=== PATIENT | female | born 1955 | race Caucasian/White ===

== ENCOUNTER 2021-05-21 13:33 | Emergency (ER) | payer OTHER, MEDICAID ==
[~2021-05-21] VITALS: Ht 154.9 cm; Wt 127.0 kg
--- NOTE | 2021-05-21 13:33 | NUR ---
BROUGHT BACK TO BED #5 AND TRIAGED. REPORT GIVEN TO MATTHEW
[2021-05-21 13:55] VITALS: BP_SYST 151
--- NOTE | 2021-05-21 14:06 | NUR ---
INTRODUCTION MADE: C/C NAUSEA X 2 WEEKS WITH CONSTIPATION. PATIENT TAMAZIGHT SPEAKING ONLY, SCREW MACHINE SET UP OPERATOR AT BEDSIDE ASSISTING WITH TRANSLATION.
--- NOTE | 2021-05-21 14:07 | NUR ---
MD AT BEDSIDE ASSESSING PATIENT.
--- NOTE | 2021-05-21 14:27 | NUR ---
MEDICATED PATIENT PER ORDER, PATIENT EDUCATED ON MEDICATION ON DJIBOUTIAN, VERBALIZES UNDERSTANDING, ALL QUESTIONS ANSWERED AT THIS TIME.
[2021-05-21] MEDS ORDERED: MAG HYDROX/AL HYDROX/SIMETH 30 ML, DICYCLOMINE HCL 20 MG, LIDOCAINE VISCOUS 2% 15ML (PO... PO ONE ×3 (14:30)
--- NOTE | 2021-05-21 14:30 | NUR ---
LABS DRAWN AND SENT TO LAB
--- NOTE | 2021-05-21 14:38 | NUR ---
PATIENT TAKEN TO RADIOLOGY
--- NOTE | 2021-05-21 14:50 | NUR ---
PATIENT UNABLE TO PRODUCE URINE SAMPLE
--- NOTE | 2021-05-21 15:00 | NUR ---
RN ROUNDS: NEEDS MET AT THIS TIME, PATIENT COMFORTABLE WITH NO ACUTE DISTRESS NOTED.
[2021-05-21 15:11] LABS: HEMATOCRIT 37.3 % (36-48); HEMOGLOBIN 12.6 g/dL (12.0-16.0); MEAN CORPUSCULAR HEMOGLOBIN 32 pg (27-31); MEAN CORPUSCULAR HGB CONC 34 % (32-36); MEAN CORPUSCULAR VOLUME 94 fL (79.0-98.0); PLATELET COUNT (AUTO) 405 K/uL (130-430); RED BLOOD CELL COUNT(AUTO) 3.98 MIL/uL (4.2-6.2); RED CELL DISTRIBUTION WIDTH 15.2 % (9.0-15.0); WHITE BLOOD COUNT (AUTO) 17.5 K/uL (4.8-10.8)
[2021-05-21 15:24] LABS: CALCIUM 8.6 mg/dL (8.4-11.0); CREATININE 1.2 mg/dL (0.55-1.30); POTASSIUM 4.1 mmol/L (3.5-5.1)
[2021-05-21 15:30] LABS: ALBUMIN 2.5 g/dL (3.4-4.8); TOTAL BILIRUBIN 0.7 mg/dL (0.0-1.0)
[2021-05-21 16:13] LABS: BAND % (MANUAL) 7 % (0-6); LYMPHOCYTES % (MANUAL) 7 % (20-46)
[2021-05-21 16:14] LABS: BASOPHILS % (MANUAL) 0 % (0-2); EOSINOPHILS % (MANUAL) 0 % (0-7); MONOCYTES % (MANUAL) 4 % (0-11)
--- NOTE | 2021-05-21 16:32 | NUR ---
Notified ED Admitting regarding Dr. Molina's request for admission/transfer. Will contact life insurance sales agent regarding this matter.
--- NOTE | 2021-05-21 16:39 | NUR ---
Per ED Admitting, insurance associate requested fax of facesheet and clinicals and will call back. ATTN: Russel FAX: [phone]
[2021-05-21] MEDS ORDERED: metroNIDAZOLE 500 MG TABLET PO ONE (16:45)
[2021-05-21] MEDS ORDERED: PIPERACILLIN/TAZO 3.375 GM in NS 50 ML IV ONE (16:45)
[2021-05-21] MEDS ORDERED: PIPERACILLIN/TAZOBACTAM 3.375 GM/VIAL (ZOSYN) IV ONE (16:47)
--- NOTE | 2021-05-21 16:58 | NUR ---
20G PLACED TO LEFT HAND, NO SIGNS OF INFILTRATION NOTED.
--- NOTE | 2021-05-21 16:59 | NUR ---
COVID / MRSA SWAB SENT TO LAB
[2021-05-21 17:05] LABS: BILIRUBIN,URINE NEGATIVE (NEGATIVE); BLOOD, URINE NEGATIVE (NEGATIVE); CLARITY/URINE CLEAR (CLEAR); COLOR,URINE YELLOW (YELLOW); GLUCOSE,URINE NEGATIVE (NEGATIVE); KETONES,URINE NEGATIVE (NEGATIVE); LEUKOCYTE ESTERASE ,URINE NEGATIVE (NEGATIVE); NITRITE, URINE NEGATIVE (NEGATIVE); PROTEIN URINE NEGATIVE (NEGATIVE); UROBILINOGEN,URINE 0.2 (0.2-1.0)
--- NOTE | 2021-05-21 17:08 | NUR ---
Dr. Lowe, Insurance Doctor, called back to speak to Dr. Molina regarding pt status.
--- NOTE | 2021-05-21 17:49 | NUR ---
EDUCATION PROVIDED WITH [employer] EXECUT[employer], PATIENT VERBALIZES UNDERSTANDING, DENIES ANY QUESTIONS AT THIS TIME.
--- NOTE | 2021-05-21 18:48 | NUR ---
REPORT GIVEN TO JONATHAN MONTANO AT [facility]
--- NOTE | 2021-05-21 19:01 | NUR ---
REPORT GIVEN TO INCOMING NURSE
--- NOTE | 2021-05-21 19:10 | NUR ---
Received report from Lizbeth MONTANO. Patient resting quietly. No acute distress noted.
--- NOTE | 2021-05-21 20:06 | NUR ---
Pt ambulated to the restroom with a steady gait.
--- NOTE | 2021-05-21 20:25 | NUR ---
Dr. Molina speaking to Dr. Kay regarding patient transfer
--- NOTE | 2021-05-21 21:30 | NUR ---
Patient resting quietly. No acute distress noted.
[2021-05-21 23:35] VITALS: BP_SYST 160
--- NOTE | 2021-05-21 23:35 | NUR ---
Patient to be transferred to [facility]. Is being transferred due to INSURANCE. Receiving facility has accepting physician and available space. ER physician has signed transfer form. Patient or responsible constitution party has agreed to transfer and signed form. Patient belongings inventoried and will be sent with patient. Copy of nursing notes, lab reports, EKG, Physicians Orders and X-rays to be sent with patient. Report called to JONATHAN MONTANO at receiving facility. Receiving physician is DR. MONTEZ. REPORT GIVEN TO DAVID MORENO WITH [facility]
== END 2021-05-21 23:35 | disposition short-term general hospital (02) ==
LOC: SED 13:33
DX: K57.92 Diverticulitis of intestine, part unspecified, without perforation or abscess without bleeding (principal); I10 Essential (primary) hypertension; Z20.822 Contact with and (suspected) exposure to COVID-19
CPT/HCPCS: 36415; 74021; 74176; 76376; 80053; 81003; 83690; 85007; 85027; 87426; 96365; 99285; J2001; J2543